=== PATIENT | female | born 1965 | race Two or more races ===

== ENCOUNTER 2019-10-02 15:06 | Emergency (ER) | payer SELFPAY ==
[~2019-10-02] VITALS: Ht 157.5 cm; Wt 90.0 kg
[2019-10-02] MEDS ORDERED: ONDANSETRON 4MG ODT PO ONE (18:45)
[2019-10-02 20:51] VITALS: BP 115/71
== END 2019-10-02 20:52 | disposition home or self-care (01) ==
LOC: ER 15:06
DX: R05 Cough (principal); R50.9 Fever, unspecified
CPT/HCPCS: 71045; 99283; Q0162; Z7610